=== PATIENT | female | born 1990 | race Caucasian/White ===

== ENCOUNTER 2023-12-29 18:14 | Emergency (ER) | payer SELFPAY ==
[2023-12-29 18:17] VITALS: BP 161/96
[2023-12-29 18:58] VITALS: BMI 44.9
[2023-12-29 19:00] VITALS: BP 141/80
[2023-12-29 20:00] VITALS: BP 134/78
[2023-12-29 20:06] LABS: % Basophils 0.2 % (0-2); % Eosinophils 0.1 % (0-6); % Immature Granulocytes 0.4 % (0-0.5); % Lymphocytes 7.2 % (20.5-51.1); % Monocytes 4.6 % (1.7-9.3); % Neutrophils 87.5 % (42.2-75.2); Absolute Immature Granulocytes 0.1 10^3/uL (0-0.05); Absolute Lymphocytes 0.9 10^3/uL (1.2-3.4); Absolute Monocytes 0.6 10^3/uL (0.1-0.6); Absolute Neutrophils 11.5 10^3/uL (1.4-6.5); Hematocrit 39.8 % (37.0-47.0); Mean Corp Hgb Conc. 35.2 g/dL (33.0-37.0); Mean Corpuscular Hgb 34.1 pg (27.0-31.0); Mean Corpuscular Volume 97.1 fL (81.0-99.0); Nucleated Red Blood Cells % 0 %; Platelet Count 141 10^3/uL (130-400); Red Cell Dist. Width 14.6 % (11.5-14.5); White Blood Cell Count 13.1 10^3/uL (4.8-10.8)
[2023-12-29 20:10] VITALS: BP 134/78
[2023-12-29 20:18] LABS: HCG, Serum Qualitative Screen Negative
[2023-12-29 20:19] LABS: Lactic Acid 1.4 mmol/L (0.7-2.0)
--- NOTE | 2023-12-29 20:54 | ED.SKININJ ---
HPI-Injury
General
Chief Complaint: Skin Problem
Source: patient
Exam Limitations: none
Time Seen by Provider: 12/29/23 19:09
Nursing documentation reviewed up to this point in time: agreed with
History of Present Illness-Injury
Is this injury a work related problem?: No
Is pt an associate of [facility]?: No
Initial Injury comments:
Patient to E with complaint of erythema to multiple insect bites BLE. States bites occurred 2 weeks ago She admits to scratching, picking. No drainage. Erythema to bilateral shins. RLE erythema advancing to medial thigh. SHe reports fever at
home. Brought self to ED for eval.
Past History
Past History
ED Past Medical History: None
Review of Systems
Review of Systems
Constitutional: Reports fever (Reports fever at home)
Musculoskeletal: Reports no symptoms
Skin: Reports other (Multiple old insect bites to bilateral lower legs with surrounding erythema. No swelling, no discharge.)
Neurological: Reports no symptoms
Psychiatric: Reports no symptoms
Skin Exam
Bite
Bilateral Lower Leg:
Type: insect/spider
Surrounding area around bite has: other (erythema surrounding bites. No swelling, no drainage)
Distal skin color and temperature: normal-warm & good color
Normal distal neurovascular exam: Yes
Phy Exam
General Physical Exam
General Presentation: well appearing and no apparent distress
General age: appears stated age
General Skin: warm and dry
General Habitus: normal
General Mental: alert
General Hydration: appears well hydrated
Musculoskeletal Exam
Musculoskeletal Exam: full ROM, no edema and neuro vasc intact
Skin Exam
Skin Exam: other (Multiple old insect bites to bilat. lower legs. sites are scabbed with surrounding erythema. No swelling or discharge. Full ROM to BLE, neurovascularly intact.)
Psychiatric Exam
Psychiatric Exam: normal mood/affect
Course
Orders/Labs/Results
Orders:
Orders
12/29/23 19:55
Complete Blood Count/With Diff Urgent
Lactic Acid Urgent
12/29/23 19:57
Test Result ONCE
12/29/23 19:58
HCG, Serum Qualitative Screen Urgent
12/29/23 20:38
Doxycycline [Vibramycin] 100 mg PO NOW STA
Abnormal Lab Results
12/29/23
19:55
WBC 13.1 H 10^3/uL
(4.8-10.8)
RBC 4.10 L 10^6/uL
(4.20-5.40)
MCH 34.1 H pg
(27.0-31.0)
RDW 14.6 H %
(11.5-14.5)
Abs Immat Gran (auto) 0.1 H 10^3/uL
(0-0.05)
Absolute Neuts (auto) 11.5 H 10^3/uL
(1.4-6.5)
Absolute Lymphs (auto) 0.9 L 10^3/uL
(1.2-3.4)
Neutrophils % 87.5 H %
(42.2-75.2)
Lymphocytes % 7.2 L %
(20.5-51.1)
12/29/23 19:55
Vital Signs
Initial and Last Documented VS:
Initial Vital Signs
Temp Pulse Resp BP Pulse Ox
98.2 F 105 16 161/96 98
12/29/23 18:17 12/29/23 18:17 12/29/23 18:17 12/29/23 18:17 12/29/23 18:17
Last Documented Vital Signs
Temp Pulse Resp BP Pulse Ox
98.2 F 105 16 134/78 97
12/29/23 18:17 12/29/23 18:17 12/29/23 18:17 12/29/23 20:10 12/29/23 20:00
*Critical Care Note
Total Time (30-74mins, 75-104mins- exclusive of procedures): Not Applicable
Update Note
Update Note:
Labs reviewed. WBC 13 noted. Lactic normal. Afebrile in ED. Alert and oriented, nontoxic appearing. WIll start doxycycline in ED and discharge home with close follow upwith PCP. Given instructions on s/s to return to ED and she is agreeable to
plan.
ED Attending Note
-
Portions of this chart may have been created with voice recognition software.� Occasional wrong word or��sound alike� substitutions may have occurred due to the inherent limitations of voice recognition software.
Discharge Plan
Departure
Patient Disposition: Home (Routine Discharge)
Date of Disposition: 12/29/23
Time of Disposition: 20:39
Patient with high blood pressure during this ER visit?: No
Condition: Good
Covid-19: Not Applicable
Discharge Problem:
Cellulitis
Instructions: Cellulitis (Skin Infection), Adult (DC)
Prescriptions:
New
doxycycline monohydrate 100 mg capsule
100 mg PO BID Qty: 20 0RF
Referrals:
Morgan Rivas DO [Family Provider] - Follow up in 2-3 days
Activity Restrictions/Additional Instructions:
Warm compresses to your legs 15-20 minutes at a time, 4-5 times daily. Return to the emergency department immediately for any changes in/worsening of your symptoms.
Interventions
Interventions:
*Risk Screen - Suicide Last Done: 12/29/23 18:54
*General Assessment Last Done: 12/29/23 18:54
*Neglect/Abuse Screening Last Done: 12/29/23 18:54
*ED COVID-19 Vaccine History Last Done: 12/29/23 18:54
ED-Skin Assessment Last Done: 12/29/23 18:54
Discharge Date and Time
Print Language: ROMANSH
[2023-12-29] MEDS: VIBRAMYCIN 100 MG PO (20:58)
== END 2023-12-29 21:02 | disposition home or self-care (01) ==
LOC: EMR 18:14
PROVIDERS: Nurse Practitioner; EMERGENCY PHYSICIAN Emergency Medicine; FAMILY PHYSICIAN Family Medicine
DX: L03.116 Cellulitis of left lower limb (principal); L03.115 Cellulitis of right lower limb
CPT/HCPCS: 99283; 83605; 84703; 85025